=== PATIENT | female | born 1955 | race Caucasian/White ===

== ENCOUNTER 2017-09-09 21:15 | Emergency (ER) | payer OTHER ==
[2017-09-09 21:27] VITALS: BMI 32.1
--- NOTE | 2017-09-09 22:22 | PDOC ---
Attending Attestation - Resident Resident Name: Beba Nunez - ED Attending Attestation I have performed the following: I have examined & evaluated the patient, The case was reviewed & discussed with the resident, I agree w/resident's findings & plan - HPI HPI: 09/10/17 04:41 Pt comes with right inner thigh pain. Worse while she was sleeping; woke her from sleep and she was screaming. Pt spent the whole day shopping; she lifted a 20 lb turkey and other bags. She has had this once before 6 mos ago. Pt has no groin pain at this time. Just right inner thigh pain. - Physicial Exam PE: 09/10/17 04:43 Agree with resident exam. Pt has no varicose veins in the patch of skin at the right inner thigh where she is having pain. She has varicose veins bilaterally. - Medical Decision Making 09/10/17 03:53 Patient Name: MALATHI PINEDA THIS IS A PRELIMINARY REPORT FROM [facility] DATE OF SERVICE: 2017-09-10 02:21:33 IMAGES: 607 EXAM: CT PELVIS and CT lower extremities with contrast HISTORY: Rule out femoral hernia COMPARISON: None. FINDINGS: CT pelvis: The pelvic small and large bowel are normal. The appendix is normal. The uterus and adnexal structures are normal. Urinary bladder is unremarkable. There is no pelvic free fluid. No discrete pelvic lymphadenopathy is identified. CT lower extremities: No hernia identified. No mass or abnormal fluid collections. No discrete vascular abnormalities. The muscles, bones and peripheral soft tissues are unremarkable. IMPRESSION: No hernia or evidence of acute pathology of the pelvis or lower extremities. THIS DOCUMENT HAS BEEN ELECTRONICALLY SIGNED 09/10/17 04:46 THIS IS A PRELIMINARY REPORT FROM [facility] DATE OF SERVICE: 2017-09-09 22:20:37 IMAGES: 25 EXAM: Venous duplex unilateral right lower extremity HISTORY: Right lower extremity swelling COMPARISON: None. FINDINGS: There is no DVT in the right lower extremity. There are thrombosed varicose vessels in the distal calf IMPRESSION: No DVT. Thrombosed varicose vessels.
--- NOTE | 2017-09-09 22:23 | PDOC ---
History of Present Illness - General History Source: Patient, Family Exam Limitations: No Limitations - History of Present Illness Initial Comments: This is a 61 YOF who presents BIBA c/o right medial thigh pain, right leg swelling, and mild right leg numbness/tingling/heaviness/weakness. She had a random onset of the pain about two hours ago which reached 10/10 at maximum (4/ 10 now) and never radiated. It was unchanged by walking and weight bearing, and there are no factors that made it better or worse. She has had similar prior episodes of this same pain but has never had it evaluated medically. She did not take any medications for the pain tonight. She denies any recent fever, chills, nausea, vomiting, abdominal pain, back pain, chest pain, SOB, incontinence, headache, vision changes, trouble walking, trouble speaking, trouble swallowing, <EnriqueBeba - Last Filed: 09/09/17 23:21> <Jacquelin Sy - Last Filed: 09/10/17 03:57> - General Chief Complaint: Pain, Acute Stated Complaint: RIGTH LEG PAIN Time Seen by Provider: 09/09/17 21:42 Past History - Past Medical History Anemia: No Asthma: No Cancer: No Cardiac Disorders: No CVA: No COPD: No CHF: No Dementia: No Diabetes: No GI Disorders: No Disorders: No HTN: No Hypercholesterolemia: No Liver Disease: No Seizures: No Thyroid Disease: No - Surgical History Abdominal Surgery: No Appendectomy: No Cardiac Surgery: No Cholecystectomy: No Lung Surgery: No Neurologic Surgery: No Orthopedic Surgery: No - Suicide/Smoking/Psychosocial Hx Smoking History: Never smoked Have you smoked in the past 12 months: No Information on smoking cessation initiated: No Hx Alcohol Use: No Drug/Substance Use Hx: No Substance Use Type: None Hx Substance Use Treatment: No <Beba Nunez - Last Filed: 09/09/17 23:21> <Jacquelin Sy - Last Filed: 09/10/17 03:57> - Past Medical History Allergies/Adverse Reactions: Allergies Allergy/AdvReac Type Severity Reaction Status Date / Time celecoxib [From Celebrex] Allergy Rash Verified 09/09/17 22:11 Home Medications: Ambulatory Orders NK [No Known Home Medication] 09/09/17 Review of Systems - Review of Systems Able to Perform ROS?: Yes Constitutional: No: Chills, Fever, Unexplained wgt Loss HEENTM: No: Nose Congestion, Throat Pain Respiratory: No: Cough, Shortness of Breath Cardiac (ROS): No: Chest Pain, Palpitations ABD/GI: No: Constipated, Diarrhea, Nausea, Vomiting : No: Burning, Dysuria Musculoskeletal: Yes: Other (right thigh pain, right leg swelling, right varicose veins). No: Back Pain, Neck Pain Integumentary: No: Bruising, Rash Neurological: Yes: Numbness (mild to right leg), Tingling (mild to right leg). No: Headache, Weakness, Dizziness Endocrine: No: Unexplained Weight Gain, Unexplained Weight Loss <Beba Nunez - Last Filed: 09/09/17 23:21> *Physical Exam - Vital Signs Last Vital Signs Temp Pulse Resp BP Pulse Ox 98.5 F 70 18 179/94 98 09/09/17 21:21 09/09/17 21:21 09/09/17 21:21 09/09/17 21:21 09/09/17 21:21 - Physical Exam General Appearance: Yes: Nourished, Appropriately Dressed, Obese, Other ( pleasant Upper Sorbian-speaking adult female with family at bedside, answers appropriately). No: Apparent Distress HEENT: positive: EOMI, Normal Voice, Hearing Grossly Normal. negative: Scleral Icterus (R), Scleral Icterus (L), Nasal Congestion Neck: positive: Trachea midline, Supple. negative: Tender, Rigid Respiratory/Chest: positive: Lungs Clear, Normal Breath Sounds. negative: Respiratory Distress, Crackles, Rhonchi, Stridor, Wheezing Cardiovascular: positive: Regular Rhythm, Regular Rate, Edema (BLE non-pitting edema), Other (Many scattered varicose veins to RLE significantly more prominent than LLE). negative: Murmur Vascular Pulses: Dorsalis-Pedis (R): 2+, Doralis-Pedis (L): 2+ Gastrointestinal/Abdominal: positive: Normal Bowel Sounds, Soft. negative: Tender, Organomegaly, Pulsatile Mass, Guarding Musculoskeletal: positive: Normal Inspection. negative: CVA Tenderness, Decreased Range of Motion, Vertebral Tenderness Extremity: positive: Normal Capillary Refill, Normal Inspection, Normal Range of Motion, Tender (mild tenderness to right medial mid-shaft thigh). negative: Cyanosis Integumentary: positive: Normal Color, Dry, Warm. 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 negative : Facial Droop, Numbness, Sensory Deficit, Confused, Disoriented <Beba Nunez - Last Filed: 09/09/17 23:21> - Vital Signs Last Vital Signs Temp Pulse Resp BP Pulse Ox 98.5 F 70 18 179/94 98 09/09/17 21:21 09/09/17 21:21 09/09/17 21:21 09/09/17 21:21 09/09/17 21:21 <Jacquelin Sy - Last Filed: 09/10/17 03:57> ED Treatment Course - LABORATORY CBC & Chemistry Diagram: 09/09/17 22:57 09/09/17 22:57 - RADIOLOGY Radiology Studies Ordered: Category Date Time Status DUPLEX VASCUL US-1 LEG [US] Stat Ultrasound 09/09/17 22:11 Ordered <Beba Nunez - Last Filed: 09/09/17 23:21> - LABORATORY CBC & Chemistry Diagram: 09/09/17 22:57 09/09/17 22:57 - ADDITIONAL ORDERS Additional order review: Laboratory Results 09/09/17 22:57 Sodium 141 Potassium 4.0 Chloride 107 Carbon Dioxide 26 Anion Gap 8 BUN 19 H Creatinine 0.8 D Creat Clearance w eGFR > 60 Random Glucose 98 D Calcium 8.6 Total Bilirubin 0.5 AST 11 L D ALT 24 Alkaline Phosphatase 84 Total Protein 6.4 Albumin 3.5 09/09/17 22:57 RBC 4.55 MCV 85.2 MCHC 33.3 RDW 13.2 MPV 8.7 Neutrophils % 56.4 Lymphocytes % 29.8 Monocytes % 9.3 Eosinophils % 3.6 Basophils % 0.9 - Medications Given in the ED: ED Medications Discontinued Medications Generic Name Dose Route Start Last Admin Trade Name Freq PRN Reason Stop Dose Admin Iohexol 0 ml 09/09/17 23:30 09/09/17 23:36 Omnipaque - IT 09/09/17 23:31 30 ml NOW ONE Administration <Jacquelin Sy - Last Filed: 09/10/17 03:57> Medical Decision Making - Medical Decision Making 61 YOF who presents BIBA for right medial thigh pain, subjective RLE swelling, RLE varicose veins. Exam notable for mild ttp right medial thigh, prominent varicosities isolated to RLE, VS wnl. DDX IBNLT DVT, simeon's cyst, bone cyst/neoplasm, muscle strain/sprain/cramp, etc. Ordered is RLE duplex, CBCD, CMP. Awaiting results of RLE Duplex. Ordered is CT Pelvis with PO contrast r/o femoral hernia. 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 <Beba Nunez - Last Filed: 09/09/17 23:21> *DC/Admit/Observation/Transfer <Beba Nunez - Last Filed: 09/09/17 23:21> - Discharge Dispostion Admit: No <Jacquelin Sy - Last Filed: 09/10/17 03:57> Diagnosis at time of Disposition: Leg pain, medial, Right thigh pain - Discharge Dispostion Disposition: HOME Condition at time of disposition: Stable - Referrals Referrals: Juan Kathleen MD [Primary Care Provider] - Tony Abraham MD [Staff Physician] - - Patient Instructions Printed Discharge Instructions: DI for Leg Pain - Post Discharge Activity
[2017-09-09 23:04] LABS: BASOPHIL 0.9 % (0-2.0); EOSINOPHIL 3.6 % (0-4.5); MCH 28.4 pg (25.7-33.7); MCHC 33.3 g/dl (32.0-36.0); MEAN CELL VOLUME 85.2 fl (80-96); MEAN PLT VOLUME 8.7 fl (7.5-11.1); NEUTROPHILS 56.4 % (42.8-82.8); PLATELET COUNT 167 K/MM3 (134-434); RDW 13.2 % (11.6-15.6); WHITE BLOOD COUNT 5.5 K/mm3 (4.0-10.0)
[2017-09-09] MEDS ORDERED: IOHEXOL 180 MG/1 ML ML IT ONE (23:30)
[2017-09-09 23:39] LABS: ALBUMIN 3.5 g/dl (3.4-5.0); ALK PHOS 84 U/L (45-117); ANION GAP 8 (8-16); BILIRUBIN,TOTAL 0.5 mg/dL (0.2-1.0); CALCIUM 8.6 mg/dL (8.5-10.1); CO2 26 mmol/L (21-32); CREATININE 0.8 mg/dL (0.55-1.02); GLUCOSE,RANDOM 98 mg/dL (74-106); SGOT/AST 11 U/L (15-37); SGPT/ALT 24 U/L (12-78); TOT PROT 6.4 g/dl (6.4-8.2)
--- NOTE | 2017-09-10 01:27 | PDOC ---
*Physical Exam - Vital Signs Last Vital Signs Temp Pulse Resp BP Pulse Ox 98.5 F 70 18 179/94 98 09/09/17 21:21 09/09/17 21:21 09/09/17 21:21 09/09/17 21:21 09/09/17 21:21 - Physical Exam General Appearance: Yes: Appropriately Dressed. No: Apparent Distress Respiratory/Chest: positive: Lungs Clear, Normal Breath Sounds. negative: Chest Tender, Respiratory Distress, Accessory Muscle Use Cardiovascular: positive: Regular Rhythm, Regular Rate, S1, S2. negative: Edema , JVD, Murmur, Gallop/S3, Gallop/S4 Gastrointestinal/Abdominal: positive: Normal Bowel Sounds, Flat, Soft. negative : Tender Musculoskeletal: positive: Normal Inspection Extremity: positive: Normal Inspection, Other (varicosity over the proximal portion of the right lower extremity ). negative: Tender, Swelling Integumentary: positive: Normal Color, Dry, Warm. negative: Ecchymosis Neurologic: positive: Fully Oriented, Alert, Normal Mood/Affect, Normal Response ED Treatment Course - LABORATORY CBC & Chemistry Diagram: 09/09/17 22:57 09/09/17 22:57 - ADDITIONAL ORDERS Additional order review: Laboratory Results 09/09/17 22:57 Sodium 141 Potassium 4.0 Chloride 107 Carbon Dioxide 26 Anion Gap 8 BUN 19 H Creatinine 0.8 D Creat Clearance w eGFR > 60 Random Glucose 98 D Calcium 8.6 Total Bilirubin 0.5 AST 11 L D ALT 24 Alkaline Phosphatase 84 Total Protein 6.4 Albumin 3.5 09/09/17 22:57 RBC 4.55 MCV 85.2 MCHC 33.3 RDW 13.2 MPV 8.7 Neutrophils % 56.4 Lymphocytes % 29.8 Monocytes % 9.3 Eosinophils % 3.6 Basophils % 0.9 - Medications Given in the ED: ED Medications Discontinued Medications Generic Name Dose Route Start Last Admin Trade Name Freq PRN Reason Stop Dose Admin Iohexol 0 ml 09/09/17 23:30 09/09/17 23:36 Omnipaque - IT 09/09/17 23:31 30 ml NOW ONE Administration Medical Decision Making - Medical Decision Making 09/10/17 01:26 Signout received from day team. Patient is a 61 yo f BIBEMS for right mid-thigh pain, heaviness and numbness. -duplex is negative for DVT, but reveals thrombosis of varicose veins in the distal calf. -will f/u CT to rule out femoral hernia 09/10/17 04:02 -CT pelvis WNL; patient is stable for discharge with close followup *DC/Admit/Observation/Transfer Diagnosis at time of Disposition: Right thigh pain Leg pain, medial Qualifiers: Laterality: right Qualified Code(s): M79.604 - Pain in right leg - Discharge Dispostion Disposition: HOME Condition at time of disposition: Improved - Referrals Referrals: Tony Abraham MD [Staff Physician] - Juan Kathleen MD [Primary Care Provider] - - Patient Instructions Printed Discharge Instructions: DI for Leg Pain Additional Instructions: You should follow up with your primary care physician within 1-2 days of discharge. You can take Tylenol for the pain. If you begin to feel worsening pain or increased numbness or if any of your symptoms become worse, please call your doctor or return to the emergency department. - Post Discharge Activity
[2017-09-10] MEDS ORDERED: ACETAMINOPHEN 325 MG TABLET (FP) PO ONE (04:00)
[2017-09-10 04:09] VITALS: BP 142/71; PULSE 64; TEMP 98
== END 2017-09-10 04:10 | disposition home or self-care (01) ==
LOC: JER 21:15
DX: M79.604 Pain in right leg (principal); I83.91 Asymptomatic varicose veins of right lower extremity
CPT/HCPCS: 36415; 72193-TC; 80053; 85025; 93971-TC; 99282-25

== ENCOUNTER 2024-03-21 09:59 | Emergency (ER) | payer MEDICARE, OTHER ==
[2024-03-21 10:05] VITALS: TEMP 98.5; BMI 33.6
[2024-03-21] MEDS ORDERED: DIPHTH,PERTUSS(ACELL),TET 0.5 ML DISP.SYRIN IM ONE (10:43)
[2024-03-21] MEDS: ACETAMINOPHEN 1000 MG/100 ML BAG IVPB ONE (10:43)
[2024-03-21] MEDS ORDERED: ACETAMINOPHEN 325 MG TABLET (FP) ONE (10:47)
[2024-03-21] MEDS: ACETAMINOPHEN 500 MG TABLET (FP) PO ONE (11:03)
[2024-03-21] MEDS: DIPHTH,PERTUSS(ACELL),TET 0.5 ML DISP.SYRIN IM ONE (11:04)
[2024-03-21 12:40] VITALS: BP 152/82; PULSE 63; RESP 18
== END 2024-03-21 12:40 | disposition home or self-care (01) ==
LOC: JER 09:59
PROC: 3E0234Z Introduction of Serum, Toxoid and Vaccine into Muscle, Percutaneous Approach (ICD-10-PCS; principal; 2024-03-21)
DX: S02.2XXA Fracture of nasal bones, initial encounter for closed fracture (principal); M79.641 Pain in right hand; M79.644 Pain in right finger(s); W01.198A Fall on same level from slipping, tripping and stumbling with subsequent striking against other object, initial encounter; Y93.01 Activity, walking, marching and hiking; Y92.009 Unspecified place in unspecified non-institutional (private) residence as the place of occurrence of the external cause; Z23 Encounter for immunization
CPT/HCPCS: 70450-TC; 70486-TC; 73130-TC-RT-FY; 90471; 90715; 99284-25

== ENCOUNTER 2024-11-07 19:08 | Inpatient (IN) | payer MEDICARE, OTHER ==
[2024-11-07 19:14] VITALS: BMI 34.0
[2024-11-07] MEDS ORDERED: ACETAMINOPHEN 325 MG TABLET (FP) ONE (20:07)
[2024-11-07] MEDS: SODIUM CHLORIDE 0.9% 500 ML INFUS.BAG IV ONE (20:33)
[2024-11-07] MEDS: ACETAMINOPHEN 325 MG TABLET (FP) PO ONE (20:33)
[2024-11-07 20:38] LABS: BASO % 0.5 % (0-2.0); EOS % 0.1 % (0-4.5); HEMATOCRIT 43.4 % (32.4-45.2); LYMPH % 10.4 % (8-40); MCH 27.9 pg (25.7-33.7); MCHC 32.2 g/dl (32.0-36.0); MEAN CELL VOLUME 86.8 fl (80-96); MEAN PLT VOLUME 8.6 fl (7.5-11.1); PLATELET COUNT 128 10^3/uL (134-434); RBC 5.01 M/mm3 (3.60-5.2); RDW 13.7 % (11.6-15.6)
[2024-11-07 20:57] LABS: POTASSIUM 3.8 mmol/L (3.5-5.1)
[2024-11-07 20:59] LABS: ALBUMIN 3.6 g/dl (3.4-5.0); CALCIUM 9.1 mg/dL (8.5-10.1); MAGNESIUM 1.8 mg/dL (1.8-2.4)
[2024-11-07 21:04] LABS: BILIRUBIN,TOTAL 0.9 mg/dL (0.2-1); TOT PROT 6.8 g/dl (6.4-8.2)
[2024-11-07 21:05] LABS: BLOOD UREA NITROGEN 17.1 mg/dL (7-18)
[2024-11-08] MEDS ORDERED: OSELTAMIVIR PHOSPHATE 75 MG CAPSULE ONE ×2 (00:10→11:41)
[2024-11-08] MEDS: OSELTAMIVIR PHOSPHATE 75 MG CAPSULE PO ONE (00:15)
[2024-11-08 06:47] LABS: BASO % 0.6 % (0-2.0); EOS % 0.1 % (0-4.5); HEMATOCRIT 39.9 % (32.4-45.2); HEMOGLOBIN 12.9 GM/dL (10.7-15.3); LYMPH % 15.6 % (8-40); MCH 28.1 pg (25.7-33.7); MCHC 32.3 g/dl (32.0-36.0); MEAN CELL VOLUME 86.9 fl (80-96); MEAN PLT VOLUME 8.9 fl (7.5-11.1); NEUT % 70.7 % (42.8-82.8); PLATELET COUNT 111 10^3/uL (134-434); RBC 4.59 M/mm3 (3.60-5.2); RDW 13.6 % (11.6-15.6); WHITE BLOOD COUNT 3.4 K/mm3 (4.0-10.0)
[2024-11-08 08:29] LABS: BLOOD UREA NITROGEN 14.7 mg/dL (7-18); CALCIUM 8.4 mg/dL (8.5-10.1); CREATININE 0.8 mg/dL (0.55-1.3); POTASSIUM 3.9 mmol/L (3.5-5.1)
[2024-11-08] MEDS: OSELTAMIVIR PHOSPHATE 75 MG CAPSULE PO SCH (11:52)
[2024-11-08] MEDS ORDERED: ACETAMINOPHEN 325 MG TABLET (FP) ONE (11:53)
[2024-11-08] MEDS: ACETAMINOPHEN 325 MG TABLET (FP) PO PRN (11:56)
[2024-11-09 07:13] LABS: BASO % 0.9 % (0-2.0); EOS % 1.5 % (0-4.5); HEMATOCRIT 39.7 % (32.4-45.2); HEMOGLOBIN 12.8 GM/dL (10.7-15.3); LYMPH % 35.4 % (8-40); MCH 27.8 pg (25.7-33.7); MCHC 32.1 g/dl (32.0-36.0); MEAN CELL VOLUME 86.5 fl (80-96); MEAN PLT VOLUME 8.7 fl (7.5-11.1); NEUT % 44.2 % (42.8-82.8); PLATELET COUNT 107 10^3/uL (134-434); RBC 4.59 M/mm3 (3.60-5.2); RDW 13.8 % (11.6-15.6); WHITE BLOOD COUNT 2.4 K/mm3 (4.0-10.0)
[2024-11-09 07:31] LABS: POTASSIUM 3.7 mmol/L (3.5-5.1)
[2024-11-09 07:38] LABS: BLOOD UREA NITROGEN 16.7 mg/dL (7-18); CALCIUM 8.5 mg/dL (8.5-10.1)
[2024-11-09 07:39] LABS: ALBUMIN 3.1 g/dl (3.4-5.0)
[2024-11-09 07:40] LABS: N-TERMINAL BNP 38.3 pg/ml (5-125)
[2024-11-09 07:42] LABS: CREATININE 0.7 mg/dL (0.55-1.3)
[2024-11-09 07:44] LABS: BILIRUBIN,TOTAL 0.5 mg/dL (0.2-1)
[2024-11-09] MEDS: ENOXAPARIN NA (PORCINE) 40 MG/0.4 ML DISP.SYRIN SQ SCH (10:08)
[2024-11-10 08:19] LABS: BASO % 0.7 % (0-2.0); EOS % 5.2 % (0-4.5); HEMATOCRIT 38.2 % (32.4-45.2); HEMOGLOBIN 12.8 GM/dL (10.7-15.3); LYMPH % 40.4 % (8-40); MCH 28.4 pg (25.7-33.7); MCHC 33.5 g/dl (32.0-36.0); MEAN CELL VOLUME 84.8 fl (80-96); MEAN PLT VOLUME 8.5 fl (7.5-11.1); MONO % 16.1 % (3.8-10.2); NEUT % 37.6 % (42.8-82.8); PLATELET COUNT 110 10^3/uL (134-434); RDW 13.6 % (11.6-15.6)
[2024-11-10 08:38] LABS: POTASSIUM 3.8 mmol/L (3.5-5.1)
[2024-11-10 08:50] LABS: BLOOD UREA NITROGEN 18.5 mg/dL (7-18); CALCIUM 8.4 mg/dL (8.5-10.1)
[2024-11-10 08:51] LABS: ALBUMIN 3.1 g/dl (3.4-5.0)
[2024-11-10 08:54] LABS: CREATININE 0.7 mg/dL (0.55-1.3)
[2024-11-10 08:55] LABS: BILIRUBIN,TOTAL 0.4 mg/dL (0.2-1); TOT PROT 5.8 g/dl (6.4-8.2)
[2024-11-10 08:59] LABS: N-TERMINAL BNP 16.5 pg/ml (5-125)
[2024-11-11 08:55] LABS: HEMATOCRIT 38.4 % (32.4-45.2); HEMOGLOBIN 12.5 GM/dL (10.7-15.3); MCH 27.9 pg (25.7-33.7); MCHC 32.5 g/dl (32.0-36.0); MEAN CELL VOLUME 85.7 fl (80-96); MEAN PLT VOLUME 8.6 fl (7.5-11.1); PLATELET COUNT 112 10^3/uL (134-434); RBC 4.47 M/mm3 (3.60-5.2); RDW 13.3 % (11.6-15.6); WHITE BLOOD COUNT 2.3 K/mm3 (4.0-10.0)
[2024-11-11 09:09] LABS: ALBUMIN 3.2 g/dl (3.4-5.0); BLOOD UREA NITROGEN 15.5 mg/dL (7-18); CALCIUM 8.5 mg/dL (8.5-10.1)
[2024-11-11 09:11] LABS: CREATININE 0.7 mg/dL (0.55-1.3)
[2024-11-11 09:13] LABS: BILIRUBIN,TOTAL 0.7 mg/dL (0.2-1)
[2024-11-11 09:44] LABS: ANISOCYTOSIS 0; HELMET CELLS 0; HOWELL-JOLLY BODIES 0; MACROCYTOSIS 0; OVALOCYTE 0; ROULEAU 0; SICKELED CELLS 0; TARGET CELLS 0; TEAR DROP CELLS 0; TOXIC GRANULATION 0
[2024-11-12 08:57] LABS: POTASSIUM 3.8 mmol/L (3.5-5.1)
[2024-11-12 09:03] LABS: ALBUMIN 3.1 g/dl (3.4-5.0); BASO % 0.5 % (0-2.0); BLOOD UREA NITROGEN 14.1 mg/dL (7-18); CALCIUM 8.8 mg/dL (8.5-10.1); EOS % 6.4 % (0-4.5); HEMATOCRIT 37.1 % (32.4-45.2); HEMOGLOBIN 12.4 GM/dL (10.7-15.3); LYMPH % 38.4 % (8-40); MCH 28.4 pg (25.7-33.7); MCHC 33.5 g/dl (32.0-36.0); MEAN CELL VOLUME 84.8 fl (80-96); MEAN PLT VOLUME 8.4 fl (7.5-11.1); NEUT % 39.7 % (42.8-82.8); PLATELET COUNT 98 10^3/uL (134-434); RBC 4.37 M/mm3 (3.60-5.2); RDW 13.4 % (11.6-15.6); WHITE BLOOD COUNT 2.3 K/mm3 (4.0-10.0)
[2024-11-12 09:06] LABS: BILIRUBIN,TOTAL 0.7 mg/dL (0.2-1); CREATININE 0.7 mg/dL (0.55-1.3); TOT PROT 5.9 g/dl (6.4-8.2)
[2024-11-12 12:58] VITALS: RESP 18
[2024-11-12 13:53] VITALS: BP 152/75; PULSE 70; TEMP 98.8
== END 2024-11-12 18:18 | disposition home or self-care (01) | DRG 194 ==
LOC: JER 19:08 → JERBED 22:03 → J4S 11-08 16:20 → OBSVTOIN 11-09 20:33
PROVIDERS: ADMIT Internal Medicine; ATTEND Internal Medicine
DX: J10.1 Influenza due to other identified influenza virus with other respiratory manifestations (principal); I47.19 Other supraventricular tachycardia; D72.819 Decreased white blood cell count, unspecified; R94.31 Abnormal electrocardiogram [ECG] [EKG]
CPT/HCPCS: 0241U-QW; 36415; 71045-TC-FY; 80048; 80053; 80061; 83036; 83735; 83880; 84439; 84443; 84484; 85025; 93005; 93010; 93306-TC; 99283-25; G0378